=== PATIENT | male | born 1955 ===

== ENCOUNTER 2018-11-01 17:32 | Outpatient (CLI) | payer OTHER ==
--- NOTE | 2018-11-01 18:29 | RAD ---
RADIOGRAPH LEFT KNEE 3 VIEWS: 11/01/18 HISTORY: 63-year-old male with pain and decreased range of motion after traumatic injury several days ago. FINDINGS: There is no fracture or dislocation. Joint spaces are maintained without erosions or significant oste ophytes. There is a small enthesophyte at the inferior superior pole of the patella. There is suprapa tellar joint effusion. No destructive osseous lesion. IMPRESSION: 1. No fracture. 2. Joint effusion. POS: CET
== END 2018-11-01 17:33 | disposition home or self-care (01) ==
LOC: SCSRAD 17:32
PROVIDERS: ATTEND Family Medicine
DX: M25.562 Pain in left knee (principal); M25.462 Effusion, left knee